=== PATIENT | male | born 2000 | race Native Hawaiian/Other Pacific Islander ===

== ENCOUNTER 2018-01-27 16:08 | Emergency (ER) | payer OTHER ==
[~2018-01-27] VITALS: Ht 172.7 cm; Wt 79.0 kg
[2018-01-27 16:15] VITALS: BP 141/61; PULSE 92; RESP 16; TEMP 98.7; O2SAT 97
[2018-01-27] MEDS ORDERED: VENTAER INH (16:39)
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
[2018-01-27] MEDS ORDERED: KETOROLAC TROMETHAMINE 60 MG/2 ML (IM) VIAL IM ONE (16:45)
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
[2018-01-27 18:32] VITALS: BP 144/74; PULSE 69; RESP 16; O2SAT 98
[2018-01-27] MEDS ORDERED: ROBA500T PO (19:43)
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
== END 2018-01-27 20:42 | disposition home or self-care (01) ==
LOC: PHEFT 16:08
DX: S30.0XXA Contusion of lower back and pelvis, initial encounter (principal); S13.4XXA Sprain of ligaments of cervical spine, initial encounter; S06.0X1A Concussion with loss of consciousness of 30 minutes or less, initial encounter; J45.909 Unspecified asthma, uncomplicated; V47.5XXA Car driver injured in collision with fixed or stationary object in traffic accident, initial encounter
CPT/HCPCS: 70450; 72110; 72125; 96372; 99284; J1885